=== PATIENT | male | born 1970 | race Caucasian/White ===

== ENCOUNTER → 2019-07-28 | Outpatient (CLI) | payer OTHER ==
--- NOTE | 2019-07-28 15:22 | US ---
EXAMINATION TYPE: US scrotum with doppler. Grayscale and color Doppler Duplex imaging performed of t amanda scrotum. DATE OF EXAM: 07/28/2019 COMPARISON: NONE CLINICAL HISTORY: N45.1Epididymitis. Right testicle pain and lump per patient. EXAM MEASUREMENTS: TESTICLES: Right Testicle: 4.3 x 2.2 x 2.7 cm Left Testicle: 4.0 x 1.9 x 2.2 cm EPIDIDYMIS HEAD: Right Epididymis: 1.9 cm Left Epididymis: 0.8 cm Doppler performed to assess for testicular vascularity; good bilateral color flow and waveforms are s een. Color images show satisfactory blood flow. Comparison image not performed. Presence of hydroceles: no Presence of varicoceles: no Right epididymal cyst measuring 1.6 x 1.2 x 1.9cm IMPRESSION: Simple appearing thin-walled 1.6 cm right epididymal cyst likely accounts for asymmetric right-sided lump.
--- NOTE | 2019-07-28 15:23 | US ---
EXAMINATION TYPE: US kidneys/renal and bladder DATE OF EXAM: 07/28/2019 COMPARISON: Renal ultrasound July 10, 2018 CLINICAL HISTORY: R10.31 right lower quadrant pain. EXAM MEASUREMENTS: Right Kidney: 11.1 x 4.4 x 4.5 cm Left Kidney: 11.1 x 4.4 x 4.9cm Right Kidney: lobular, no evident mass or hydro Left Kidney: probable stone measuring 0.4 x 0.3 x 0.3cm Bladder: wnl There is no evidence for hydronephrosis at this point in time. There is 3 mm hyperechoic focus left k idney suspicious for nonobstructing renal calculus. No masses are identified. The urinary bladder i s not greatly distended. Bilateral ureteral jets are not seen. IMPRESSION: No hydronephrosis is evident bilaterally.
== END | disposition home or self-care (01) ==
LOC: RADUSWWP 14:14
PROVIDERS: ATTEND Family Medicine
DX: N45.1 Epididymitis (principal); R10.31 Right lower quadrant pain
CPT/HCPCS: 76770; 76870; 93975

== ENCOUNTER 2020-06-28 05:33 | Emergency (ER) | payer OTHER ==
[2020-06-28 05:37] VITALS: BP 137/100; PULSE 94; RESP 18; TEMP 98.4
--- NOTE | 2020-06-28 06:00 | ED ---
Skin/Abscess/FB HPI - General Chief complaint: Skin/Abscess/Foreign Body Stated complaint: rash, poss allergic reaction Time Seen by Provider: 06/28/20 05:58 Source: patient Mode of arrival: ambulatory Limitations: no limitations - History of Present Illness Initial comments: Zabrina is a 50-year-old male who presents to the ER today for reevaluation of a persistent rash. Patient was out in the [place] the [place], he subsequently developed a rash on his arms and his abdomen. He saw his primary care provider who is concerned that he has exposure to poison oak. He was prescribed a 21 day taper of prednisone, Benadryl nightly. Patient reports he's taken 4 days of the steroids with no improvement so he wanted reevaluation to make sure he didn't have a secondary infection or a parasite. - Related Data Previous Rx's Medication Instructions Recorded hydrOXYzine HCL [Atarax] 25 mg PO TID PRN #30 tab 06/28/20 Allergies Allergy/AdvReac Type Severity Reaction Status Date / Time No Known Allergies Allergy Verified 06/28/20 05:37 Review of Systems ROS Statement: Those systems with pertinent positive or pertinent negative responses have been documented in the HPI. ROS Other: All systems not noted in ROS Statement are negative. Past Medical History Past Medical History: No Reported History History of Any Multi-Drug Resistant Organisms: None Reported Past Surgical History: No Surgical Hx Reported Past Psychological History: No Psychological Hx Reported Smoking Status: Never smoker Past Alcohol Use History: None Reported Past Drug Use History: None Reported General Exam - General Exam Comments Initial Comments: Physical Exam GENERAL: Patient is well-developed and well-nourished. Patient is nontoxic and well-hydrated and is in no distress. HENT: Normocephalic, Atraumatic. EYES: PERRL, EOMI PULMONARY: Unlabored respirations. CARDIOVASCULAR: RRR Warm and well perfused extremities ABDOMEN: Non-distended SKIN: Rash in bilateral antecubital fossa, anterior abdomen, superficial blistering erythema consistent with recent dermatitis : Deferred NEUROLOGIC: Alert and oriented Normal speech Normal gait MUSCULOSKELETAL: Moving all extremities with no apparent injury PSYCHIATRIC: No SI/HI Limitations: no limitations Course Vital Signs 06/28/20 05:35 Temperature 98.4 F Pulse Rate 94 Respiratory 18 Rate Blood Pressure 137/100 O2 Sat by Pulse 98 Oximetry Medical Decision Making - Medical Decision Making she was seen and evaluated history is obtained from patient History and physical exam are consistent with yeast dermatitis the patient is currently on prednisone, Zyrtec, Benadryl advised patient weekend add Atarax during the day and refer him to dermatology for further evaluation Patient agreeable to this plan prescription was provided referral information was provided and discharge paperwork patient discharged home in stable condition Disposition Clinical Impression: Rhus dermatitis Disposition: HOME SELF-CARE Condition: Stable Prescriptions: hydrOXYzine HCL [Atarax] 25 mg PO TID PRN #30 tab PRN Reason: Itching Is patient prescribed a controlled substance at d/c from ED?: No Referrals: Ton Valentino MD [Primary Care Provider] - 1-2 days [facility] [Provider Group] - 1-2 days
== END 2020-06-28 06:56 | disposition home or self-care (01) ==
LOC: EC 05:33
DX: L23.7 Allergic contact dermatitis due to plants, except food (principal)
CPT/HCPCS: 99282

== ENCOUNTER 2022-04-06 09:30 | Day surgery (SDC) | payer OTHER ==
[2022-04-04 10:43] VITALS: BMI 28.7
[~2022-04-06 09:30] MED LIST: LACTATED RINGERS 1,000 ML IV SCH; LIDOCAINE 1% (10MG/ML) FOR IV START INTRADERMA PRN
[2022-04-06 09:55] VITALS: TEMP 96.8
[2022-04-06] MEDS ORDERED: LIDOCAINE 2% INJ 20 MG/ML (2 ML VIAL) ONE (10:58)
[2022-04-06] MEDS ORDERED: PROPOFOL 10 MG/ML 20 ML VIAL IV ONE (10:58)
--- NOTE | 2022-04-06 11:10 | P.PCN ---
Date of Procedure: 04/06/22 Procedure(s) Performed: BRIEF HISTORY: Patient is a 52-year-old, pleasant, white male scheduled for an upper endoscopy as a part of evaluation of epigastric burning pain and abdominal bloating for the last 6 months duration. He denies any heartburn. The personal dysphagia or odynophagia. He lost about 4 pounds in the last 6 months duration. He has been on omeprazole 40 mg daily as well as Carafate with no help. His and scheduled for an upper endoscopy as evaluate further.. PROCEDURE PERFORMED: Esophagogastroduodenoscopy with biopsy. PREOPERATIVE DIAGNOSIS: Epigastric pain and abdominal bloating of 6 months duration. IV sedation per anesthesia. PROCEDURE: After informed consent was obtained, the patient was brought into the endoscopy unit. IV sedation was administered by Anesthesia under continuous monitoring. Initially the Olympus GIF-140 video endoscope was inserted into the mouth. Esophagus intubated without any difficulty. It was gradually advanced into the stomach and duodenum and carefully examined. The bulb and the second part of the duodenum appeared normal. Abscesses were done from the duodenum to rule out celiac disease. The scope at this time was withdrawn to the stomach, adequately insufflated with air, and upon careful examination, mucosa of the antrum and mild gastritis and biopsies were done from this area., body, cardia and the fundus appeared normal. The scope was then withdrawn into the esophagus. The GE junction was located at 39 cm from the incisors. The esophagus appeared normal. There were no erosions or ulcerations seen , biopsies were done from the distal esophagus and the patient tolerated the procedure well. IMPRESSION: 1. Mild antral gastritis. 2. No evidence of esophagitis or peptic ulcer disease. RECOMMENDATIONS: The findings of this examination were discussed with the patient as well as his family. He was advised to continue with current medications and follow antireflux measures. He'll be seen in office in 3-4 weeks..
[2022-04-06 11:32] VITALS: BP 118/79; PULSE 56; RESP 16
== END 2022-04-06 12:15 | disposition home or self-care (01) ==
LOC: ORWHC2ENDO 09:30
PROVIDERS: ATTEND Internal Medicine Gastroenterology
DX: K29.50 Unspecified chronic gastritis without bleeding (principal); K21.00 Gastro-esophageal reflux disease with esophagitis, without bleeding; Z86.69 Personal history of other diseases of the nervous system and sense organs; Z79.899 Other long term (current) drug therapy
CPT/HCPCS: 88305; 43239; J2704; J2001